=== PATIENT | female | born 1995 | race Caucasian/White ===

== ENCOUNTER 2020-03-28 14:46 | Outpatient (CLI) | payer OTHER, SELFPAY ==
[2020-03-28 15:25] LABS: Add Urine Microscopic? NO; Appearance Urine Clear (Clear); Bilirubin Urine Negative (Negative); Blood Urine Negative (Negative); Color Urine Colorless (Yellow); Glucose Urine UA Negative (Negative); Ketones Urine Negative (Negative); Leukocyte Esterase Ur Negative LEU/UL (Negative); Nitrate Urine Negative (Negative); Protein Urine Negative (Negative); Specific Grav Ur 1.006 (1.001-1.035); Urobilinogen Urine Negative mg/dL (<2.0)
[2020-03-28 15:45] LABS: Hemoglobin A1C 5.1 % (<5.7)
== END 2020-03-28 14:47 | disposition home or self-care (01) ==
PROVIDERS: PCP Physician Assistant; Visit Provider Obstetrics & Gynecology
DX: N92.6 Irregular menstruation, unspecified (principal); R32 Unspecified urinary incontinence
CPT/HCPCS: 36415; 81003; 83036

== ENCOUNTER 2022-07-24 21:06 | Emergency (ER) | payer OTHER, SELFPAY ==
[2022-07-24 21:19] VITALS: BP 123/76; PULSE 87; RESP 20; TEMP 36.6; O2SAT 96
--- NOTE | 2022-07-24 21:57 | ED.FEMALEGU ---
HPI - Female Genitourinary General Chief complaint: Vaginal Bleeding <LATRICIA Devries Last Filed: 07/24/22 22:55> Stated complaint: VAGINAL BLEEDING <LATRICIA Devries Last Filed: 07/24/22 22:55> Time Seen by Provider: 07/24/22 21:43 <LATRICIA Devries Last Filed: 07/24/22 22:55> History of Present Illness HPI Narrative: Patient is a 26-year-old female here for evaluation of vaginal bleeding. Patient states that she has had continuous vaginal bleeding for the past 7 weeks. She has seen her PCP and her CARDIAC SURGEON for this issue, has been attributed to PCOS and endometritis. She has been started on metformin but has not been on oral contraceptives given history of adverse reaction. Patient states that her pain acutely worsened 2 days ago and is now bleeding through a pad an hour. Also notes passage of small blood clots, mild abdominal cramping, and nausea. No vomiting, fever, diarrhea. <LATRICIA Devries Last Filed: 07/24/22 22:55> Related Data Home medications: Home Medications Medication Instructions Recorded Confirmed escitalopram oxalate 20 mg tablet 20 mg PO DAILY 03/27/20 08/12/21 (Lexapro) levothyroxine 50 mcg capsule 50 mcg PO DAILY 07/07/22 metformin 500 mg tablet 500 mg PO DAILY 07/07/22 rosuvastatin 5 mg tablet 20 mg PO DAILY 07/07/22 <LATRICIA Devries Last Filed: 07/24/22 22:55> Allergies/Adverse reactions: Allergies Allergy/AdvReac Type Severity Reaction Status Date / Time clindamycin Allergy Severe Anaphylactic Verified 07/24/22 22:18 Shock sulfamethoxazole Allergy Severe Anaphylactic Verified 07/24/22 22:18 Shock trimethoprim Allergy Severe Anaphylactic Verified 07/24/22 22:18 Shock red dye Allergy Unknown Unknown Verified 07/24/22 22:18 sulfamethizole Allergy Unknown Unknown Verified 07/24/22 22:18 <LATRICIA Devries Last Filed: 07/24/22 22:55> Review of Systems Review of Systems: Gen: Denies fevers or chills Eyes: Denies eye pain or visual change ENT: Denies congestion Respiratory: Denies shortness of breath or cough CV: Denies chest pain or palpitations GI: Reports nausea. Denies abdominal pain, emesis or diarrhea reports vaginal bleeding. Denies burning, urgency, frequency or hematuria Musculoskeletal: Denies back pain or muscle pain Neuro: Denies numbness, tingling, weakness or focal weakness Skin: Denies rash Except as documented, all other systems reviewed and negative <Michell Mata PA-C - Last Filed: 07/24/22 22:55> PMFSH Past Medical History Medical History: Medical History Acid reflux Anxiety Depression <Michell Mata PA-C - Last Filed: 07/24/22 22:55> Surgical History Surgical History: Surgical History H/O breast surgery [place] teeth removed <Michell Mata PA-C - Last Filed: 07/24/22 22:55> Family History Family History: Family History Other Breast cancer Grandparent Diabetes mellitus Cerebrovascular accident Heart attack Father Diabetes mellitus Father Hypertension Sibling Asthma <Michell Mata PA-C - Last Filed: 07/24/22 22:55> Social History Social History: Social History Smoking status: Never smoker Alcohol intake: current Drinks per week: 3 Substance use type: marijuana Last use: Patient states she does not use it often 1-2 a year <Michell Mata PA-C - Last Filed: 07/24/22 22:55> Exam Narrative: APPEARANCE: Well appearing, no pain in distress, well-nourished. Head: Normocephalic and atraumatic. EYES: PERRLA/EOMI, conjunctivae clear NOSE: No nasal drainage EARS: External ear normal
[2022-07-24 21:59] LABS: Appearance Urine Clear (Clear); Bilirubin Urine Negative (Negative); Blood Urine 3+ (Negative); Color Urine Yellow (Yellow); Glucose Urine UA Negative (Negative); Ketones Urine Trace mg/dL (Negative); Leukocyte Esterase Ur Negative LEU/UL (Negative); Nitrate Urine Negative (Negative); Protein Urine Trace mg/dL (Negative); Specific Grav Ur >= 1.030 (1.001-1.035); Urobilinogen Urine 0.2 mg/dL (<2.0); pH Urine 5.5 (5.0-9.0)
[2022-07-24 22:01] LABS: Basophils Absolute Auto 0.1 K/mm3 (0.0-0.1); Basophils Percent Auto 0.9 % (0.2-1.2); Eosinophils Absolute Auto 0.4 K/mm3 (0-0.3); Eosinophils Percent Auto 4.2 % (0-4.4); Hematocrit 37.6 % (37.0-47.0); Hemoglobin 12.6 g/dL (12.0-15.0); Immature Granulocyte Absolute 0.03 K/mm3 (0.00-0.031); Immature Granulocyte Percent A 0.3 % (0-0.5); Lymphocytes Absolute Auto 3.02 K/mm3 (0.9-3.2); Lymphocytes Percent Auto 33.7 % (18.3-44.2); Mean Corpuscular HGB Conc 33.5 g/dl (32-36); Mean Corpuscular Hemoglobin 29.4 pg (26-34); Mean Corpuscular Volume 87.6 fl (80-100); Mean Platelet Volume 9.5 fl (7.4-10.4); Monocytes Absolute Auto 0.6 K/mm3 (0.1-0.6); Monocytes Percent Auto 7.1 % (2.6-8.5); Neutrophils Absolute Auto 4.8 K/mm3 (1.3-6.7); Neutrophils Percent Auto 53.8 % (45.5-73.1); Platelet Count Result 310 k/mm3 (150-375); Red Blood Count 4.29 M/mm3 (4.2-5.4); Red Cell Distribution Width 12.9 % (11.5-14.5)
[2022-07-24 22:15] LABS: Add Urine Microscopic? YES; Bacteria Urine Trace /hpf; Mucus Urine Rare /lpf; RBC Urine >75 /hpf (0-2); Squamous Epithelial Cell Urine Few /hpf (Few)
[2022-07-24 22:18] VITALS: BP 120/83; PULSE 82; RESP 16; O2SAT 98
[2022-07-24] MEDS: ONDANSETRON INJ 4 MG/2 ML VIAL IV PUSH (22:19)
== END 2022-07-24 23:21 | disposition home or self-care (01) ==
PROVIDERS: Emergency Provider Emergency Medicine; PCP Physician Assistant
DX: N93.9 Abnormal uterine and vaginal bleeding, unspecified (principal); R11.0 Nausea; Z79.899 Other long term (current) drug therapy
CPT/HCPCS: 36415; 81001; 81025; 85025; 87086; 87088; 96374; 99284; J2405

== ENCOUNTER 2024-06-10 02:14 | Emergency (ER) | payer OTHER, SELFPAY ==
[2024-06-10 02:17] VITALS: BP 102/57; PULSE 94; RESP 16; TEMP 36.3; O2SAT 100
--- NOTE | 2024-06-10 04:58 | PC.NURSE ---
Patient came up to triage desk and advised that she was leaving. Patient had a steady gait upon exiting ED.
== END 2024-06-10 05:22 | disposition left against medical advice (07) ==
PROVIDERS: PCP Nurse Practitioner Family
DX: Z53.21 Procedure and treatment not carried out due to patient leaving prior to being seen by health care provider (principal)
CPT/HCPCS: 99199